=== PATIENT | male | born 1950 | race Caucasian/White ===

== ENCOUNTER → 2025-03-24 | Outpatient (CLI) | payer MEDICARE, OTHER ==
[2025-03-25 15:11] LABS: Source, Urine Clean Catch
[2025-03-25 18:46] LABS: Bilirubin, Urine Neg (Neg); Color, Urine Yellow (P-Yellow); Glucose Qualitative, Urine Neg (Neg); Ketones, Urine Neg (Neg); Leukocyte Esterase, Urine Neg (Neg); Protein, Urine Neg (Neg); Specific Gravity, Urine 1.015 (1.003-1.022); Urobilinogen, Urine NORM (Normal)
== END ==
LOC: LAB 14:56 → LAB SHORT 14:56
PROVIDERS: Family Medicine
DX: N39.0 Urinary tract infection, site not specified (principal)
CPT/HCPCS: 81003

== ENCOUNTER 2025-06-04 12:12 | Inpatient (IN) | payer MEDICARE, OTHER ==
[~2025-06-04] VITALS: Ht 182.9 cm; Wt 63.8 kg
[2025-06-04] MEDS ORDERED: Ondansetron HCl 2 MG / ML 2ML Vial IV ONE (13:45)
[2025-06-04] MEDS ORDERED: FentaNYL Citrate 50 MCG/ML 2 ML Injection IV ONE (13:45)
[2025-06-04 14:16] LABS: BASOPHILS ABSOLUTE AUTO 0.02 K/mm3 (0.00-0.23); BASOPHILS PERCENT AUTO 0 % (0-2); EOSINOPHILS ABSOLUTE AUTO 0.08 K/mm3 (0.00-0.68); EOSINOPHILS PERCENT AUTO 1 % (0-6); Hematocrit 44.3 % (37.0-53.0); Hemoglobin 15.5 g/dL (13.5-17.5); IMMATURE GRAN ABSOLUTE AUTO 0.04 K/mm3 (0.00-0.10); IMMATURE GRAN PERCENT AUTO 0 % (0-1); LYMPHOCYTES ABSOLUTE AUTO 1.80 K/mm3 (0.84-5.20); LYMPHOCYTES PERCENT AUTO 17 % (21-46); MONOCYTES ABSOLUTE AUTO 1.00 K/mm3 (0.16-1.47); MONOCYTES PERCENT AUTO 9 % (4-13); Mean Corpuscular HGB Conc 35.0 g/dL (31.5-36.5); Mean Corpuscular Volume 91 fL (80-100); NEUTROPHILS ABSOLUTE AUTO 7.87 K/mm3 (1.96-9.15); NEUTROPHILS PERCENT AUTO 73 % (41-73); NRBC ABSOLUTE 0.00 K/mm3 (0.00-0.02); NRBC Auto 0.0 /100 WBC (0.0-0.2); Platelet Count 203 K/mm3 (150-400); RDW Coefficient Variation 11.7 % (11.7-14.2); RDW Standard Deviation 39.2 fL (35.1-46.3)
[2025-06-04] MEDS ORDERED: AMINOFEN325 MG PO (14:23)
[2025-06-04] MEDS ORDERED: CARBIDOPA-LEVO1 EA17 PO (14:23)
[2025-06-04 14:36] LABS: Alanine Aminotransfer (ALT/SGP 11.0 U/L (12-78); Albumin, Blood 3.6 g/dL (3.4-5.0); Albumin/Globulin Ratio 1.0 (0.8-1.8); Anion Gap 8.0 mmol/L (3-11); Aspartate Aminotrans (AST/SGOT 25.0 U/L (12-37); Bilirubin, Total 3.3 mg/dL (0.1-1.0); Blood Urea Nitrogen 15.0 mg/dL (8-24); CO2, Blood 27.0 mmol/L (21-32); Calcium, Blood 8.8 mg/dL (8.5-10.1); Chloride, Blood 101.0 mmol/L (98-108); Creatinine, Blood 0.71 mg/dL (0.60-1.20); Globulin, Blood 3.6 g/dL (2.2-4.0); Glucose, Blood 102.0 mg/dL (70-99); Potassium, Blood 3.8 mmol/L (3.5-5.5); Sodium, Blood 132.0 mmol/L (136-145); Total Protein, Blood 7.2 g/dL (6.4-8.2)
[2025-06-04] MEDS ORDERED: Ondansetron HCl 2 MG / ML 2ML Vial IV PRN (15:50)
[2025-06-04] MEDS ORDERED: FentaNYL Citrate 50 MCG/ML 2 ML Injection IV PRN (15:50)
[2025-06-04] MEDS ORDERED: NS 1,000 ML IV SCH (15:50)
[2025-06-04] MEDS ORDERED: FLU VACC TS2025(65UP)/MF59C/PF 45 MCG/0.5 ML SYRINGE IM SCH (16:00)
[2025-06-04] MEDS ORDERED: NS 1,000 ML IV ONE (16:53)
[2025-06-04] MEDS ORDERED: BISA10S PR (19:52)
[2025-06-04] MEDS ORDERED: LOPE2C (19:53)
[2025-06-04] MEDS ORDERED: DULCOLAX400 MG/5 M PO (19:58)
[2025-06-04] MEDS ORDERED: ONDA4ODT MM (19:59)
[2025-06-04 20:03] VITALS: BP 164/96
[2025-06-04 20:50] VITALS: BP 157/87
[2025-06-04] MEDS ORDERED: Levodopa/Carbidopa 100/25 MG Tab *CR PO SCH (21:00)
--- NOTE | 2025-06-05 04:24 | NUR ---
SHIFT SUMMARY YENNIFER WAS ALERT AND ORIENTED TO SELF AND SITUATION ON ADMIT. PT WITH L HIP FX, PT IS POOR HISTORIAN. SENSATION TO FEET INTACT. PEDAL PULSES PALPABLE. PT DENIES SOB, CHEST PAIN, OR NAUSEA. PT IS VERY STIFF, AND APPEARS TO HAVE CONTRACTURES AND POOR MOTOR FUNCTION. PT CAN TOLERATE PILLS ONE AT A TIME WITH APPLESAUCE. PT REPORTS LOW PAIN AT REST, EXACERBATED BY MOVEMENT. PT INCONTINENT, ATTENDS IN PLACE. NO ACUTE EVENTS TONIGHT.
[2025-06-05 04:26] VITALS: BP 143/85
[2025-06-05 05:06] LABS: Hematocrit 40.4 % (37.0-53.0); Hemoglobin 14.2 g/dL (13.5-17.5); Mean Corpuscular HGB Conc 35.1 g/dL (31.5-36.5); Mean Corpuscular Volume 90 fL (80-100); NRBC ABSOLUTE 0.00 K/mm3 (0.00-0.02); NRBC Auto 0.0 /100 WBC (0.0-0.2); Platelet Count 171 K/mm3 (150-400); RDW Coefficient Variation 11.7 % (11.7-14.2); RDW Standard Deviation 38.6 fL (35.1-46.3)
[2025-06-05 05:29] LABS: Alanine Aminotransfer (ALT/SGP 9.0 U/L (12-78); Albumin, Blood 3.0 g/dL (3.4-5.0); Albumin/Globulin Ratio 0.9 (0.8-1.8); Anion Gap 7.0 mmol/L (3-11); Aspartate Aminotrans (AST/SGOT 22.0 U/L (12-37); Bilirubin, Direct 0.3 mg/dL (0.0-0.3); Bilirubin, Indirect 3.5 mg/dL (0.1-0.7); Bilirubin, Total 3.8 mg/dL (0.1-1.0); Blood Urea Nitrogen 12.0 mg/dL (8-24); CO2, Blood 27.0 mmol/L (21-32); Calcium, Blood 8.2 mg/dL (8.5-10.1); Chloride, Blood 105.0 mmol/L (98-108); Creatinine, Blood 0.77 mg/dL (0.60-1.20); Globulin, Blood 3.4 g/dL (2.2-4.0); Glucose, Blood 91.0 mg/dL (70-99); Potassium, Blood 3.8 mmol/L (3.5-5.5); Sodium, Blood 135.0 mmol/L (136-145); Total Protein, Blood 6.4 g/dL (6.4-8.2)
[2025-06-05 07:17] VITALS: BP 138/83
[2025-06-05] MEDS ORDERED: Enoxaparin 30 MG/0.3 ML SYR SC SCH (09:00)
[2025-06-05] MEDS ORDERED: Polyethylene Glycol 3350 17 gm PO SCH (09:00)
--- NOTE | 2025-06-05 10:22 | NUR ---
"Spiritual Care | Pt. Request Pt. is resting in bed but responds when this transportation security officer enters the room. Pt. is pleasant, but speaks softly. Facilitate a life review and listen with interest and a calming presence. Pt. verbalizes that he has Parkinson's and Alzheimer's but was able to communicate his present story. Considered matters of emma and belief. Pt. verbalized an expectation that he would be having surgery. Prayed and shared scripture with the Pt. Pt. verbalized gratitude fo rhte spiritual care visit."
[2025-06-05 14:19] VITALS: BP 134/82
[2025-06-05] MEDS ORDERED: Midazolam HCl 1MG / ML 2ML Vial ONE (15:15)
[2025-06-05] MEDS ORDERED: FentaNYL Citrate 50 MCG/ML 2 ML Injection ONE (15:15)
[2025-06-05] MEDS ORDERED: Bupivacaine 0.5% HCl 5 MG/ML 30MLVIAL ONE (15:16)
[2025-06-05 19:45] VITALS: BP 141/85
--- NOTE | 2025-06-05 21:33 | NUR ---
CHECKED PT BRIEF BRIEF WAS DRY THE NURSE ASSISTED ME WITH REPOSITIONING THE PT ON RIGHT SIDE PT STATED HE HAD HIP PAIN LEFT HIP PT OFFERED ICE PACK FOR HIP HE SAID HE WANTED TO TRY THE ICE PACK ICE PACK ON LEFT HIP
[2025-06-06 04:41] VITALS: BP 140/94
[2025-06-06 05:41] LABS: Hematocrit 41.6 % (37.0-53.0); Hemoglobin 14.3 g/dL (13.5-17.5); Mean Corpuscular HGB Conc 34.4 g/dL (31.5-36.5); Mean Corpuscular Volume 91 fL (80-100); NRBC ABSOLUTE 0.00 K/mm3 (0.00-0.02); NRBC Auto 0.0 /100 WBC (0.0-0.2); Platelet Count 189 K/mm3 (150-400); RDW Coefficient Variation 11.8 % (11.7-14.2); RDW Standard Deviation 39.1 fL (35.1-46.3)
--- NOTE | 2025-06-06 06:06 | NUR ---
SHIFT SUMMARY A/OX2, PLEASANT AND COOPERATIVE WITH CARE. VERY PAINFUL DURING TURNS. MEDICATED PER EMAR. NO ACUTE CHANGES AT THIS TIME.
[2025-06-06 06:24] LABS: Anion Gap 9.0 mmol/L (3-11); Blood Urea Nitrogen 17.0 mg/dL (8-24); CO2, Blood 25.0 mmol/L (21-32); Calcium, Blood 8.2 mg/dL (8.5-10.1); Chloride, Blood 104.0 mmol/L (98-108); Creatinine, Blood 0.79 mg/dL (0.60-1.20); Glucose, Blood 78.0 mg/dL (70-99); Potassium, Blood 3.8 mmol/L (3.5-5.5); Sodium, Blood 134.0 mmol/L (136-145)
[2025-06-06 07:10] VITALS: BP 139/79
--- NOTE | 2025-06-06 07:10 | NUR ---
Bedside shift report received from SANTINO Cao. The pt is right side lying, has no c/o pain nor discomfort at this time. He is pleasantly conversant, alert and oriented x 2. RN states that pt might benefit from muscle relaxant for pain relief, as control overnight was a bit difficult.
--- NOTE | 2025-06-06 10:27 | NUR ---
Medicated for pain in left hip. Pt states sharp and sudden, even without touch or movement. He took oral meds without difficulty. TOW MATE assisted him with eating breakfast, and he did well. Turn and reposition, attends check/change at this time.
--- NOTE | 2025-06-06 14:00 | NUR ---
Pt was repositioned over to his right side. He was painful, but only during the turning. Afterwards he quickly closed his eyes and appeared to be sleeping, without grimacing, moaning or restlessness. RR regular and even. Pt appears to be too sleepy to eat at this time. Continues to be incontinent of urine.
[2025-06-06 15:18] VITALS: BP 134/76
--- NOTE | 2025-06-06 16:33 | NUR ---
Condom catheter placed for urinary incontinence with inability to use urinal, purewick. Concern with immobility for skin breakdown with constant moisture. Clean catch was obtained and sent for UA as ordered.
[2025-06-06 16:44] LABS: Source, Urine Clean Catch
[2025-06-06 16:49] LABS: Bilirubin, Urine Neg (Neg); Color, Urine Yellow (P-Yellow); Glucose Qualitative, Urine Neg (Neg); Ketones, Urine 3+ (Neg); Leukocyte Esterase, Urine 1+ (Neg); Protein, Urine 1+ (Neg); Specific Gravity, Urine 1.025 (1.003-1.022); Urobilinogen, Urine 1+ (Normal)
--- NOTE | 2025-06-06 18:19 | NUR ---
Pt given 25 mcg fentanyl IV for pain before turning and setting him up to eat dinner. While eating he says that his pain is "perfect" except for occasional stabbing pain in the left hip. He is eating with assistance from the PHOTORADIO OPERATOR.
[2025-06-06 19:20] VITALS: BP 128/86
[2025-06-07 03:50] VITALS: BP 146/83
--- NOTE | 2025-06-07 06:22 | NUR ---
SHIFT SUMMARY PT HAS RESTED MOST OF THE NIGHT. PAIN MANAGED PER EMAR, PT PREFERS TO TAKE TYLENOL. PT ABLE TO MAKE KNEES KNOWN, ANS QUESTIONS APPROPRIATELY. VITALS ARE STABLE. PT VOIDING, TOLERATING PO INTAKE. PLAN OF CARE REMAINS UNCHANGED. BED IN LOWEST POSITION, CALL LIGHT WITHIN REACH.
[2025-06-07 07:18] VITALS: BP 125/84
[2025-06-07] MEDS ORDERED: Enoxaparin 40 MG/0.4 ML SYR SC SCH (09:00)
--- NOTE | 2025-06-07 09:28 | NUR ---
Ethics consult order received and processed. Medical history, social constellation, and clinical situation reviewed. Conversations facilitated with the attending provider, the orthopedic surgeon and the memory care director regarding the cognitive disposition of the principal and his candidacy for sugical treatment. The principal is directable, conversant and appropriate in his questions, but concerns have been expressed pertaining to the reliability of his decliniation / consent. An MME will be ordered to explore the matter further and ensure that the principals wishes; if knoweable, are accomodated / respected. At the moment, a procedure would be considered non-emergent, so even if the princiapal was not contesting an offered intervention, the rule of presumed consent would not apply. I will remain available pending the outcome of the assessment. Bipin Schwarz, PhD, [place]
--- NOTE | 2025-06-07 11:18 | NUR ---
THIS RN SPOKE WITH STAFF AT [facility] REGARDING PT'S MOBILITY PRIOR TO FALL. PT AMBULATORY WITH WALKER. STAFF MEMBER REPORTS PT SHUFFLES FEET BUT RESPONDS WELL TO REDIRECTION ABOUT SHUFFLING FEET AND KEEPING WALKER CLOSE TO HIMSELF. PT HAS A FRIEND A POINT OF CONTACT RADHA TENORIO [phone] AND A SHAFT HEADMAN SEBASTIAN DOYLE [phone]. CASE MANAGEMENT UPDATED. CARE CONTINUES
[2025-06-07 14:54] VITALS: BP 114/71
--- NOTE | 2025-06-07 15:03 | NUR ---
THIS RN TO NOTIFY DR GARCIA OF PATIENT'S UNMANAGED PAIN. PT YELLS OUT IN PAIN WITH ANY REPOSITIONING OR MOVEMENT. PT HAS BEEN MEDICATED WITH IV FENTANYL. RECOMMENDATION FOR TORADOL OR OXYCODONE. NO NEW ORDERS AT THIS TIME.
--- NOTE | 2025-06-07 16:19 | NUR ---
Spiritual Care Visit. Pt. is awake in his bed when he welcomes my visit. This recycler forklift driver truck driver has visited this Pt. previously, so rapport was easily re-established. Pt. displayed evidence of being alert, but physically uncomfortable. Consider matters of emma and belief which resulted in a deep emotional connection for the Pt. Pt. displayed evidence of trust, but verbalized how much his restorationism community means to him. Prayed with the Pt. Pt. verbalized gratitude for the spiritual care visit.
--- NOTE | 2025-06-07 16:59 | NUR ---
SHIFT NOTE: PT A/OX2 PLEASANT AND COOPERATIVE WITH CARE. VSS. HE REPORTS PAIN IN LEFT HIP, SHOULDER, AND BACK. HE WORKED WITH ST, OT, AND PT TODAY. PAIN TREATED PER EMAR. DR. GARCIA ADDED ULTRAM AND PT REPORTS RELIEF. PT HAS RED RAISED AREA ON RIGHT WRIST FROM [place]. SEE PICTURES IN CHART. PT RESTING COMFORTABLY IN BED WITH NOTED CONTRACTURES. CALL LIGHT IN REACH.
[2025-06-07 21:08] VITALS: BP 158/86
[2025-06-08 04:52] VITALS: BP 136/83
--- NOTE | 2025-06-08 05:48 | NUR ---
SHIFT SUMMARY PT HAS RESTED T/O THE NIGHT. A LITTLE BIT OF CONFUSION, BUT ABLE TO MAKE TO NEEDS KNOWN. PT APPEARED SLEEPING DURING NURSE ROUNDS, EYES CLOSED CHEST RISES AND FALLS. VITALS ARE STABLE. PT AWAITING PLAN, SURGICAL VS NON SURGICAL. BED IN LOWEST POSITION, CALL LIGHT WITHIN REACH.
[2025-06-08 07:23] VITALS: BP 148/89
[2025-06-08 15:01] VITALS: BP 133/82
[2025-06-08 19:34] VITALS: BP 162/98
[2025-06-09 04:48] VITALS: BP 135/95
--- NOTE | 2025-06-09 06:06 | NUR ---
SUMMARY PT SLEPT OFF AND ON,TOLERATES REPOSITIONING.STILL UNCLEAR IF PT WILL HAVE SURG.
[2025-06-09 07:14] VITALS: BP 148/81
[2025-06-09 16:19] VITALS: BP 130/82
[2025-06-09 19:04] VITALS: BP 119/77
[2025-06-10 03:43] VITALS: BP 149/88
--- NOTE | 2025-06-10 04:52 | NUR ---
SHIFT SUMMARY NO ACUTE EVENTS OVERNIGHT. PT PUREWICK EXCHANGED DURING SHIFT. PT REPOSITIONED THROUGHOUT SHIFT. PT GIVEN APPLESAUCE WITH HS DOSE OF AUGMENTIN. BED ALARM ON FOR SAFETY.
[2025-06-10 07:14] VITALS: BP 120/73
--- NOTE | 2025-06-10 12:35 | NUR ---
ASSUMPTION NOTE: THIS RN TO ASSUME CARE OF PATIENT. PATIENT IS AWAKE IN BED AND ALERT AND ORIENTED TO SELF. PATIENT RESTING,BED IN LOWEST LOCKED POSIITON & STATING NOTHING ELSE IS NEEDED AT THIS TIME. PLAN CONTINUES TO BE NONSURGICAL MANAGEMENT AND THERAPIES ARE RECCOMENDING SNF VS HOME HEALTH. PATIENT HAS CALL LIGHT WITHIN REACH.
[2025-06-10 14:37] VITALS: BP 113/72
--- NOTE | 2025-06-10 15:34 | NUR ---
MD CALLED: THIS RN CALLED MD REGARDING PLAN ABOUT SNF VS. GOING BACK TO [facility]. MD TO LET HORTICULTURAL MANAGER DETERMINE WHETHER OR NOT [facility] WILL TAKE PATIENT BACK WITH HIS HIP FX.
--- NOTE | 2025-06-10 16:04 | NUR ---
Case Conference with [place] GUARDADO and Bipin Schwarz, ethicist re: Pt's refusal to have L hip surgery. Met with pt today at the bedside. He is A&O x's 2. He states he lives at "[facility] which is correct. He also states he would "very much" like to return home. In speaking with the patient, this PC RN asked him if he is having pain in his L hip. He states he is having pain in L hip. When asked about surgical intervention, the patient states he wants to know if we will numb it before surgical intervention. This RN explained he would be sedated for surgery. He asked if surgery will help his hip pain, this RN explained it would. He began to cry, stating his hip is "hurting a lot" and is agreeable for hip surgery at this time. He v/u he will need to sign consent for this surgery, and is agreeable to this. Dr. Rodriguez aware, request this PC RN call monomer recovery supervisor surgeon, Dr. James. Dr. James states he will "send someone to see this patient."
--- NOTE | 2025-06-10 16:06 | NUR ---
PALLIATIVE CARE ROUNDED: PALLIATIVE ROUNDED AND SPOKE WITH PATIENT. PATIENT AGREEABLE TO GETTING SURGERY DONE.
--- NOTE | 2025-06-10 17:40 | NUR ---
SHIFT SUMMARY: patient is alert and oriented x1-2. To self & knows he is in the hospital. The patient is satting >92% on room air. patient endorsed pain with turns & denied needing any pain medication from this rn. patient agreeable to hip surgery and is looking to have it tomorrow. Physical therapy is recommended for SNF upon discharge. patient talked with palliative care nurse and was agreeable to doing surgery,md was called and surgeon to come see patient tomorrow and possible surgery on hip tomorrow. Patient currently resting in bed,even and unlabored respirations,call light within reach & denying any further needs.
--- NOTE | 2025-06-10 19:23 | NUR ---
ASSUMED CARE OF THIS PT AT APPROX 1900 PT IS RESTING IN BED ON HIS R SIDE, PILLOWS UNDER EACH HIP AND BETWEEN LEGS. PT AWOKE W/ EASE FOR ASSESSMENT AND EVENING MED PASS. MED PASS TOOK QUITE SOME TIME. PT HAD TO TAKE ONE PILLOW AT A TIME AND BE INSTRUCTED TO SWALLOW PILL EACH TIME. PT WAS HOLDING PILL AND WATER IN HIS MOUTH FOR SOMETIME. PT IS ALERT AND ORIENTATED TO SELF, PLACE AND SITUATION AT THIS TIME. SPEAKS IN CLEAR FULL SENTENCES. BRIEF IN PLACE WITH MALE PURWICK IN PLACE, BRIEF IS CLEAN AND DRY. BED IN LOW, CALL LIGHT IN REACH, BED ALARM ON FOR SAFETY.
[2025-06-10 19:44] VITALS: BP 122/79
[2025-06-10] MEDS ORDERED: Lactobacil 2-S.Thermo-Bifido 1 1 Cap PO SCH (21:00)
[2025-06-11 04:48] VITALS: BP 139/88
--- NOTE | 2025-06-11 05:26 | NUR ---
NOC SHIFT SUMMARY NO ACUTE CHANGES SINCE LAST NOTE. PURWICK CHANGES OUT, ARIELLE CARE PROVIDED. ORAL CARE DONE. PT IS NPO SINCE MIDNIGHT MOUTH SWABS PROVIDED FOR DRY MOUTH. PT MEDICATED PER EMAR FOR PAIN. PT HAS BEEN ABLE TO REST ON AND OFF T/O THE NIGHT IN BETWEEN CARES. Q2 REPOSTIONING. CURRENTLY SLEEPING, W/ PILLOWS FLOATING BOTH HIPS. BED IN LOW, CALL LIGHT IN REACH, AND BED ALARM ON FOR SAFETY.
[2025-06-11 05:33] LABS: Anion Gap 6.0 mmol/L (3-11); Blood Urea Nitrogen 32.0 mg/dL (8-24); CO2, Blood 29.0 mmol/L (21-32); Calcium, Blood 9.0 mg/dL (8.5-10.1); Chloride, Blood 104.0 mmol/L (98-108); Creatinine, Blood 0.71 mg/dL (0.60-1.20); Glucose, Blood 103.0 mg/dL (70-99); Potassium, Blood 4.1 mmol/L (3.5-5.5); Sodium, Blood 135.0 mmol/L (136-145)
[2025-06-11 07:31] VITALS: BP 125/71
[2025-06-11] MEDS ORDERED: CefTRIAXone Sodium 1,000 MG in NS 100 ML IV SCH (12:00)
[2025-06-11 14:27] VITALS: BP 118/76
--- NOTE | 2025-06-11 18:14 | NUR ---
PALLIATIVE CARE NOTE: MET DR. JOLLEY OUTSIDE PT ROOM. PER DR. JOLLEY, HE STILL DOES NOT FEEL PT IS DECISIONAL AND ABLE TO MAKE INFORMED CONSENT FOR SURGERY AT THIS TIME. HE STATES PT SHOULD BE NON WEIGHT BEARING ON LEFT HIP. PAIN MANAGEMENT AND PT TOLERATED. DISCUSSED PAIN MANAGEMENT WITH RN. RN STATES PT IS PAINFUL ONLY WITH MOVEMENT. ONCE REPOSITIONED PT NO LONGER COMPLAINS OF PAIN. RN STATES HE HAS ENCOURAGED PT TO TAKE PAIN MEDICATIONS WHEN HE EXPRESSES PAIN, HOWEVER PT USUALLY REFUSES PAIN MEDICATIONS. DISCUSSED ATTEMPTING TO PRE-MEDICATE PT PRIOR TO ANY THERAPY VISITS BECAUSE PT HAS NOT BEEN ABLE TO PARTICIPATE IN THERAPY DUE TO UNCONTROLLED PAIN. REQUESTED STAFF TO GET PT SOMETHING TO DRINK AND EAT SINCE SURGERY WILL NOT BE PERFORMED TODAY.
--- NOTE | 2025-06-11 19:40 | NUR ---
SHIFT SUMMARY PATIENT AOX2-3 WITH INTERMITTENT CONFUSION. HE DENIES CP OR SOB. HE STATES HE HAS NO PAIN AND REFUSES PAIN MEDICATION EXCEPT WHEN REPOSITIONING HE PAIN BUT SILL REFUSES PAIN MEDS. VITASL ARE STABLE. THE ORTHO SX SPOKE WITH THE PAIALEXUS AT BEDSIDE.
[2025-06-11 19:46] VITALS: BP 119/69
--- NOTE | 2025-06-12 04:43 | NUR ---
SHIFT SUMMARY NO ACUTE CHANGES TONIGHT. PT REPOSITIONED Q2. IVF PATENT AND SL. DENIES UNMANAGED PAIN OR NEED FOR MEDICATION. ATTENDS IN PLACE, CHANGED PRN. REF ORAL CARE. CONT THERAPY PT ABLE TO TOLERATE, AWAITING FURTHER PLANNING FROM DISCHARGE AND ORTHO. PT CURRENTLY RESTING IN BED WITH CALL LIGHT IN REACH, RESP EVEN/UNLABORED AND HAS BED ALARM ON FOR SAFETY. WILL GIVE REPORT TO ONCOMING RN.
[2025-06-12 05:17] LABS: BASOPHILS ABSOLUTE AUTO 0.06 K/mm3 (0.00-0.23); BASOPHILS PERCENT AUTO 1 % (0-2); EOSINOPHILS ABSOLUTE AUTO 0.31 K/mm3 (0.00-0.68); EOSINOPHILS PERCENT AUTO 2 % (0-6); Hematocrit 42.4 % (37.0-53.0); Hemoglobin 14.3 g/dL (13.5-17.5); IMMATURE GRAN ABSOLUTE AUTO 0.06 K/mm3 (0.00-0.10); IMMATURE GRAN PERCENT AUTO 1 % (0-1); LYMPHOCYTES ABSOLUTE AUTO 1.82 K/mm3 (0.84-5.20); LYMPHOCYTES PERCENT AUTO 14 % (21-46); MONOCYTES ABSOLUTE AUTO 0.94 K/mm3 (0.16-1.47); MONOCYTES PERCENT AUTO 7 % (4-13); Mean Corpuscular HGB Conc 33.7 g/dL (31.5-36.5); Mean Corpuscular Volume 91 fL (80-100); NEUTROPHILS ABSOLUTE AUTO 9.48 K/mm3 (1.96-9.15); NEUTROPHILS PERCENT AUTO 75 % (41-73); NRBC ABSOLUTE 0.00 K/mm3 (0.00-0.02); NRBC Auto 0.0 /100 WBC (0.0-0.2); Platelet Count 364 K/mm3 (150-400); RDW Coefficient Variation 11.9 % (11.7-14.2); RDW Standard Deviation 39.6 fL (35.1-46.3)
[2025-06-12 05:18] VITALS: BP 130/79
[2025-06-12 05:42] LABS: Alanine Aminotransfer (ALT/SGP 16.0 U/L (12-78); Albumin, Blood 3.1 g/dL (3.4-5.0); Albumin/Globulin Ratio 0.8 (0.8-1.8); Anion Gap 8.0 mmol/L (3-11); Aspartate Aminotrans (AST/SGOT 32.0 U/L (12-37); Bilirubin, Total 2.0 mg/dL (0.1-1.0); Blood Urea Nitrogen 32.0 mg/dL (8-24); CO2, Blood 28.0 mmol/L (21-32); Calcium, Blood 8.7 mg/dL (8.5-10.1); Chloride, Blood 103.0 mmol/L (98-108); Creatinine, Blood 0.7 mg/dL (0.60-1.20); Globulin, Blood 3.9 g/dL (2.2-4.0); Glucose, Blood 101.0 mg/dL (70-99); Potassium, Blood 3.8 mmol/L (3.5-5.5); Sodium, Blood 135.0 mmol/L (136-145); Total Protein, Blood 7.0 g/dL (6.4-8.2)
[2025-06-12] MEDS ORDERED: NS 1,000 ML IV SCH (06:40)
[2025-06-12 07:21] VITALS: BP 134/82
[2025-06-12 15:17] VITALS: BP 113/70
[2025-06-12 19:11] VITALS: BP 128/83
--- NOTE | 2025-06-13 04:16 | NUR ---
NOC SUMMARY- PT PAIN MANAGED WELL. PT PO INTAKE HAS BEEN MINIMAL. PT HAS HAD A LARGE INCOTIENT VOID. PUREWICK DEVICE PLACED ON PT. PT REPOSITONED TOLERATED. PT REMAINS CONFUSED BUT PLESANT. CALL LIGHT IN REACH AND BED ALARM ON.
[2025-06-13] MEDS ORDERED: NS 1,000 ML IV SCH ×2 (04:45→05:00)
[2025-06-13 05:01] VITALS: BP 141/91
[2025-06-13 06:02] LABS: BASOPHILS ABSOLUTE AUTO 0.06 K/mm3 (0.00-0.23); BASOPHILS PERCENT AUTO 0 % (0-2); EOSINOPHILS ABSOLUTE AUTO 0.15 K/mm3 (0.00-0.68); EOSINOPHILS PERCENT AUTO 1 % (0-6); Hematocrit 47.7 % (37.0-53.0); Hemoglobin 15.8 g/dL (13.5-17.5); IMMATURE GRAN ABSOLUTE AUTO 0.05 K/mm3 (0.00-0.10); IMMATURE GRAN PERCENT AUTO 0 % (0-1); LYMPHOCYTES ABSOLUTE AUTO 1.61 K/mm3 (0.84-5.20); LYMPHOCYTES PERCENT AUTO 11 % (21-46); MONOCYTES ABSOLUTE AUTO 1.13 K/mm3 (0.16-1.47); MONOCYTES PERCENT AUTO 8 % (4-13); Mean Corpuscular HGB Conc 33.1 g/dL (31.5-36.5); Mean Corpuscular Volume 94 fL (80-100); NEUTROPHILS ABSOLUTE AUTO 11.45 K/mm3 (1.96-9.15); NEUTROPHILS PERCENT AUTO 79 % (41-73); NRBC ABSOLUTE 0.00 K/mm3 (0.00-0.02); NRBC Auto 0.0 /100 WBC (0.0-0.2); Platelet Count 347 K/mm3 (150-400); RDW Coefficient Variation 11.9 % (11.7-14.2); RDW Standard Deviation 41.1 fL (35.1-46.3)
[2025-06-13 06:51] LABS: Anion Gap 10.0 mmol/L (3-11); Blood Urea Nitrogen 33.0 mg/dL (8-24); CO2, Blood 24.0 mmol/L (21-32); Calcium, Blood 9.2 mg/dL (8.5-10.1); Chloride, Blood 103.0 mmol/L (98-108); Creatinine, Blood 0.71 mg/dL (0.60-1.20); Glucose, Blood 114.0 mg/dL (70-99); Potassium, Blood 4.1 mmol/L (3.5-5.5); Sodium, Blood 133.0 mmol/L (136-145)
[2025-06-13 06:52] VITALS: BP 130/77
--- NOTE | 2025-06-13 08:00 | NUR ---
Ethics consultation update. The mini mental evaluation results i.e. moderate cognitive impairment, combined with other situational / contextual factors; including the orthopedic surgeons direct assessment of the principals decisional capacity, suggest that the principal is not consentable for the procedure. With these findings in mind; if the orthopedic surgeon judges the intervention to be medically necessary; in the principals best interest; and the principal shows no disputation, then in accordance with ORS 127.760, the bioethics committee will play the role of proxy and consent to the procedure on the principals behalf. It should also be noted that the hospital has performed a reasonable search for and is unable to locate a healthcare instruction executed by the patient, or any relatives or friends who may function as the substitute decision maker. It should be equally emphasized that this case by its very nature and clinical context falls outside of the two provider attestation model, since the intervention in question is not constituted by a medical emergency. Thank you for this consult.
[2025-06-13 15:07] VITALS: BP 134/85
[2025-06-13 19:58] VITALS: BP 123/75
[2025-06-13] MEDS ORDERED: CeFAZolin Sodium 2,000 MG in NS 100 ML IV SCH (21:35)
[2025-06-13] MEDS ORDERED: Tranexamic Acid 100 ML IV SCH (21:35)
[2025-06-14] VITALS (20 sets, daily range): BP systolic 99–149; BP diastolic 65–109
--- NOTE | 2025-06-14 04:43 | NUR ---
DRYWALL STRIPPER SUMMARY NO ACUTE CHANGES THIS SHIFT. PT AWAITING L HIP SURGERY LATER TODAY. PT PAINFUL WITH MOVEMENT BUT WAS ABLE TO RELAX AND GET SOME REST TONIGHT AFTER RECEIVING PO TRAMADOL. PT DID PULL HIS IV AT START OF SHIFT DUE TO CONFUSION, NEW IV PLACED AND FLUIDS RESTARTED. NPO SINCE MIDNIGHT. VSS, WCTM.
[2025-06-14 05:02] LABS: BASOPHILS ABSOLUTE AUTO 0.04 K/mm3 (0.00-0.23); BASOPHILS PERCENT AUTO 0 % (0-2); EOSINOPHILS ABSOLUTE AUTO 0.19 K/mm3 (0.00-0.68); EOSINOPHILS PERCENT AUTO 2 % (0-6); Hematocrit 40.0 % (37.0-53.0); Hemoglobin 13.7 g/dL (13.5-17.5); IMMATURE GRAN ABSOLUTE AUTO 0.02 K/mm3 (0.00-0.10); IMMATURE GRAN PERCENT AUTO 0 % (0-1); LYMPHOCYTES ABSOLUTE AUTO 1.45 K/mm3 (0.84-5.20); LYMPHOCYTES PERCENT AUTO 15 % (21-46); MONOCYTES ABSOLUTE AUTO 0.97 K/mm3 (0.16-1.47); MONOCYTES PERCENT AUTO 10 % (4-13); Mean Corpuscular HGB Conc 34.3 g/dL (31.5-36.5); Mean Corpuscular Volume 91 fL (80-100); NEUTROPHILS ABSOLUTE AUTO 7.30 K/mm3 (1.96-9.15); NEUTROPHILS PERCENT AUTO 73 % (41-73); NRBC ABSOLUTE 0.00 K/mm3 (0.00-0.02); NRBC Auto 0.0 /100 WBC (0.0-0.2); Platelet Count 424 K/mm3 (150-400); RDW Coefficient Variation 11.9 % (11.7-14.2); RDW Standard Deviation 39.4 fL (35.1-46.3)
[2025-06-14 05:28] LABS: Anion Gap 7.0 mmol/L (3-11); Blood Urea Nitrogen 29.0 mg/dL (8-24); CO2, Blood 28.0 mmol/L (21-32); Calcium, Blood 8.6 mg/dL (8.5-10.1); Chloride, Blood 104.0 mmol/L (98-108); Creatinine, Blood 0.58 mg/dL (0.60-1.20); Glucose, Blood 111.0 mg/dL (70-99); Potassium, Blood 3.7 mmol/L (3.5-5.5); Sodium, Blood 135.0 mmol/L (136-145)
--- NOTE | 2025-06-14 13:04 | NUR ---
OR NURSE TRANSPORTED PT VIA SURGICAL BED TO OR. REMOVED PT'S PUREWICK PRIOR TO TRANSPORT.
[2025-06-14] MEDS ORDERED: CeFAZolin Sodium 2,000 MG VIAL ONE (13:19)
--- NOTE | 2025-06-14 13:19 | NUR ---
History, Chart, Medications and Allergies reviewed before start of procedure. Pre-Op teaching done. Pt verbalizes understanding. Patient confirms NPO status and agrees with scheduled surgery.
[2025-06-14] MEDS ORDERED: HYDROmorphone HCl/Pf 1MG SYR IV PRN ×2 (14:00→14:05)
[2025-06-14] MEDS ORDERED: ePHEDrine Sulfate 50 MG/ML 1ML Injection IV PRN (14:05)
[2025-06-14] MEDS ORDERED: Albuterol 2.5 MG/3 ML VIAL INH PRN (14:05)
[2025-06-14] MEDS ORDERED: HydrALAZINE HCl 20 MG / ML 1ML Vial IV PRN (14:05)
[2025-06-14] MEDS ORDERED: FentaNYL Citrate 50 MCG/ML 2 ML Injection IV PRN ×2 (14:05→14:10)
[2025-06-14] MEDS ORDERED: Ondansetron HCl 2 MG / ML 2ML Vial IV PRN (14:05)
[2025-06-14] MEDS ORDERED: Bupivacaine 0.5% HCl 5 MG/ML 30MLVIAL ONE (14:06)
[2025-06-14] MEDS ORDERED: FentaNYL Citrate 50 MCG/ML 2 ML Injection ONE (14:11)
[2025-06-14] MEDS ORDERED: Dexmedetomidine HCL 200 MCG / 2 ML ONE (14:12)
[2025-06-14] MEDS ORDERED: HYDROmorphone HCl/Pf 1MG SYR ONE (14:47)
[2025-06-14] MEDS ORDERED: Ondansetron HCl 2 MG / ML 2ML Vial ONE (15:01)
[2025-06-14] MEDS ORDERED: Dexamethasone Sod Phos 10 MG/ML 1ML VIAL ONE (15:01)
--- NOTE | 2025-06-14 16:29 | NUR ---
YENNIFER RETURNED TO SURGICAL FLOOR, VIA SURGICAL BED WITH TWO NURSES. HE IS SLEEPY, BUT RESPONSIVE TO VERBAL COMMANDS. WEARING 2LPM OXYGEN VIA NC. IN ATTENDS. PERIPHERAL PULSES STRONG. LUNG SOUNDS CLEAR, BUT DIMINISHED. PT VERY SLEEPY. TO PT'S LEFT HIP THERE ARE THREE AQUACELL DRESSINGS. C/D/I. NO DRAINAGE NOTED. VITAL SIGNS TAKEN. BED IN LOWEST POSITION.
--- NOTE | 2025-06-14 19:45 | NUR ---
PT IS POD O S/P LEFT HIP GAMMA NAILING. HE HAS BEEN SNORING AND ASLEEP SINCE ARRIVING ON THE SURGICAL FLOOR. OXYGEN 2LPM VIA NC. HE IS AROUSABLE TO VERBAL STIMULI, BUT FALLS BACK ASLEEP QUICKLY. VS STABLE. MALE PUREWICK IN PLACE TO LOW CONTINUOUS SUCTION, TRACE URINE OUTPUT. THREE AQUACELL DRESSINGS IN PLACE TO LEFT HIP. C/D/I. ICE APPLIED TO SURGICAL SITE. INCENTIVE SPIROMETER AT THE BEDSIDE, READY FOR WHEN PT CAN WAKE UP AND CAN EDUCATE PT. RN GAVE REPORT TO NIGHT NURSE PRABHJOT.
[2025-06-14] MEDS ORDERED: CeFAZolin Sodium 2,000 MG in NS 100 ML IV SCH (22:00)
[2025-06-15 03:57] VITALS: BP 119/68
--- NOTE | 2025-06-15 04:46 | NUR ---
AIRCRAFT ELECTRICIAN SUMMARY PT IS POD 0 FOR L HIP NAILING. AQUACEL DRESSINGS TO L HIP C/D/I. PT APPEARS MUCH MORE COMFORTABLE AFTER SURGERY, HAS BEEN ABLE TO SLEEP WITH L LEG STRAIGHT IN THE BED AND DOES NOT YELL OUT WHEN BEING REPOSITIONED. PT SLEEPY AFTER SURGERY AND HAS SLEPT THROUGH MOST OF THE NIGHT. PT DOES WAKE UP AND CAN ANSWER SOME QUESTIONS. PT DID HAVE SOME DIFFICULTY TAKING HIS PO MEDS DUE TO BEING TIRED. ON 2L O2 POST OP. VSS, WCTM.
[2025-06-15 05:35] LABS: BASOPHILS ABSOLUTE AUTO 0.03 K/mm3 (0.00-0.23); BASOPHILS PERCENT AUTO 0 % (0-2); EOSINOPHILS ABSOLUTE AUTO 0.06 K/mm3 (0.00-0.68); EOSINOPHILS PERCENT AUTO 1 % (0-6); Hematocrit 38.0 % (37.0-53.0); Hemoglobin 13.0 g/dL (13.5-17.5); IMMATURE GRAN ABSOLUTE AUTO 0.03 K/mm3 (0.00-0.10); IMMATURE GRAN PERCENT AUTO 0 % (0-1); LYMPHOCYTES ABSOLUTE AUTO 1.73 K/mm3 (0.84-5.20); LYMPHOCYTES PERCENT AUTO 17 % (21-46); MONOCYTES ABSOLUTE AUTO 0.99 K/mm3 (0.16-1.47); MONOCYTES PERCENT AUTO 10 % (4-13); Mean Corpuscular HGB Conc 34.2 g/dL (31.5-36.5); Mean Corpuscular Volume 92 fL (80-100); NEUTROPHILS ABSOLUTE AUTO 7.61 K/mm3 (1.96-9.15); NEUTROPHILS PERCENT AUTO 73 % (41-73); NRBC ABSOLUTE 0.00 K/mm3 (0.00-0.02); NRBC Auto 0.0 /100 WBC (0.0-0.2); Platelet Count 391 K/mm3 (150-400); RDW Coefficient Variation 11.7 % (11.7-14.2); RDW Standard Deviation 39.1 fL (35.1-46.3)
[2025-06-15 05:57] LABS: Anion Gap 7.0 mmol/L (3-11); Blood Urea Nitrogen 22.0 mg/dL (8-24); CO2, Blood 30.0 mmol/L (21-32); Calcium, Blood 8.6 mg/dL (8.5-10.1); Chloride, Blood 103.0 mmol/L (98-108); Creatinine, Blood 0.63 mg/dL (0.60-1.20); Glucose, Blood 100.0 mg/dL (70-99); Potassium, Blood 4.1 mmol/L (3.5-5.5); Sodium, Blood 136.0 mmol/L (136-145)
[2025-06-15 07:24] VITALS: BP 111/64
[2025-06-15] MEDS ORDERED: Enoxaparin 40 MG/0.4 ML SYR SC SCH (09:00)
[2025-06-15 11:12] VITALS: BP 125/62
[2025-06-15 15:35] VITALS: BP 108/63
[2025-06-15 19:15] VITALS: BP 129/69
[2025-06-16 04:02] VITALS: BP 128/76
--- NOTE | 2025-06-16 04:24 | NUR ---
SHIFT SUMMARY NO ACUTE EVENTS OVERNIGHT. PT WAS REPOSITIONED AND BRIEF CHANGED BY CIRCULAR HEAD SAW OPERATOR THROUGHOUT SHIFT. AT 0415 PT TOLD MOP WORKER THAT HE NEEDED TO URINATE AND RN ASSISTED WITH URINAL PLACEMENT; PT VOIDED DARK YELLOW URINE. PT HAS HEEL PROTECTORS IN PLACE.
[2025-06-16 04:46] LABS: BASOPHILS ABSOLUTE AUTO 0.05 K/mm3 (0.00-0.23); BASOPHILS PERCENT AUTO 1 % (0-2); EOSINOPHILS ABSOLUTE AUTO 0.23 K/mm3 (0.00-0.68); EOSINOPHILS PERCENT AUTO 2 % (0-6); Hematocrit 38.8 % (37.0-53.0); Hemoglobin 12.9 g/dL (13.5-17.5); IMMATURE GRAN ABSOLUTE AUTO 0.04 K/mm3 (0.00-0.10); IMMATURE GRAN PERCENT AUTO 0 % (0-1); LYMPHOCYTES ABSOLUTE AUTO 1.99 K/mm3 (0.84-5.20); LYMPHOCYTES PERCENT AUTO 21 % (21-46); MONOCYTES ABSOLUTE AUTO 0.95 K/mm3 (0.16-1.47); MONOCYTES PERCENT AUTO 10 % (4-13); Mean Corpuscular HGB Conc 33.2 g/dL (31.5-36.5); Mean Corpuscular Volume 94 fL (80-100); NEUTROPHILS ABSOLUTE AUTO 6.37 K/mm3 (1.96-9.15); NEUTROPHILS PERCENT AUTO 66 % (41-73); NRBC ABSOLUTE 0.00 K/mm3 (0.00-0.02); NRBC Auto 0.0 /100 WBC (0.0-0.2); Platelet Count 380 K/mm3 (150-400); RDW Coefficient Variation 11.7 % (11.7-14.2); RDW Standard Deviation 40.2 fL (35.1-46.3)
[2025-06-16 07:23] VITALS: BP 121/73
[2025-06-16 14:40] VITALS: BP 103/70
[2025-06-16 14:45] VITALS: BP 119/79
[2025-06-16 14:47] VITALS: BP 115/78
--- NOTE | 2025-06-16 16:37 | NUR ---
SHIFT SUMMARY ADMITTED ON 06/04 FOR FEMUR FRACTURE. NO ACUTE CHANGES THIS SHIFT. A&O x2-3, EASILY REDIRECTABLE, ABLE TO MAKE NEEDS KNOWN. VSS. TOLERATING SOFT DIET WELL, NEEDS ASSISTANCE w/FEEDING. L UPPER THIGH w/AQUACEL DRESSINGS, C/D/I. VOIDING w/EPISODES OF INCONTINENCE. EXPRESSES NEED TO VOID PERIODICALLY. ATTENDS IN PLACE. WORKED w/THERAPY TODAY. PLAN TO DC TO SNF TOMORROW. CURRENTLY RESTING IN BED w/CALL LIGHT WITHIN REACH.
[2025-06-16 19:32] VITALS: BP 126/77
--- NOTE | 2025-06-17 04:51 | NUR ---
SHIFT SUMMARY POD 2 L HIP FX FIXATION. AQUACEL X3 C/D/I. PT ORIENTED TO SELF AND PLACE. PT CONFUSED PERIODICALLY THROUGHOUT SHIFT, REORIENTED PT TO SITUATION AND TIME. NO ACUTE CHANGES THIS SHIFT. VSS. PT INCONTINENT W/ATTENDS IN PLACE. PT RESTING WITH EYES CLOSED, RESPIRATIONS EVEN AND UNLABORED, NO DISTRESS NOTED. CALL LIGHT WITHIN REACH.
[2025-06-17 04:54] VITALS: BP 114/76
[2025-06-17 07:07] VITALS: BP 123/73
--- NOTE | 2025-06-17 11:09 | NUR ---
I ATTEMPTED TO GIVE REPORT TO [facility]. NO ANSWER AFTER BEING ON HOLD FOR FIVE MINUTES. WILL REATTEMPT LATER THIS AM.
--- NOTE | 2025-06-17 11:26 | NUR ---
REPORT TO RAMOS/GABRIELA MCCOY
--- NOTE | 2025-06-17 12:31 | NUR ---
DISCHARGED VIA W/C ENROUTE TO [facility].
== END 2025-06-17 12:50 | DRG 481 ==
LOC: ER 12:12 → SURS 15:48
PROVIDERS: Emergency Medicine; Family Medicine; Orthopaedic Surgery; ADMIT Internal Medicine
PROC: 3E03329 Introduction of Other Anti-infective into Peripheral Vein, Percutaneous Approach (ICD-10-PCS; 2025-06-11)
PROC: 0QS734Z Reposition Left Upper Femur with Internal Fixation Device, Percutaneous Approach (ICD-10-PCS; principal; 2025-06-14 13:30)
DX: S72.142A Displaced intertrochanteric fracture of left femur, initial encounter for closed fracture (principal); E87.1 Hypo-osmolality and hyponatremia; N39.0 Urinary tract infection, site not specified; G20.A1 Parkinson's disease without dyskinesia, without mention of fluctuations; F02.80 Dementia in other diseases classified elsewhere, unspecified severity, without behavioral disturbance, psychotic disturbance, mood disturbance, and anxiety; I10 Essential (primary) hypertension; E80.6 Other disorders of bilirubin metabolism; Z79.899 Other long term (current) drug therapy; W18.30XA Fall on same level, unspecified, initial encounter
CPT/HCPCS: 36415; 73502; 73552; 80048; 80053; 80076; 81001; 85025; 85027; 87086; 92523; 93005; 93010; 94760; 96374; 96375; 97110; 97112; 97162; 97164; 97165; 97168; 97530; 99285-25; A9270; C1713; C1769; J0690; J0696; J1100; J1171; J1650; J2250; J2405; J2704; J3010; J7030; J7120